=== PATIENT | female | born 2000 | race Two or more races ===

== ENCOUNTER 2024-07-07 16:20 | Emergency (ER) | payer OTHER ==
[~2024-07-07] VITALS: Ht 157.5 cm; Wt 104.7 kg
[2024-07-07] MEDS ORDERED: BENZ200C64 PO (17:10)
[2024-07-07] MEDS ORDERED: LORA-1130 PO (17:10)
[2024-07-07] MEDS ORDERED: MOME50SP11 (17:10)
--- NOTE | 2024-07-07 17:10 | ED.PDOC ---
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 Pertinent ENVELOPE STAMPING MACHINE OPERATOR History Family History Family History: Reviewed,noncontributory to illness, No family hx of Cancer, No family hx of DM, No family hx of Heart carlito, No family hx of HTN, No family hx ofKidney carlito, No family hx of Liver carlito, No family hx of Lung carlito, No family hx of Stroke Constitutional: denies: chills, diaphoresis, fatigue, fever, malaise, sweats, weakness, others EENTM: reports: nasal discharge, nose congestion, voice changes; denies: blurred vision, double vision, ear bleeding, ear discharge, ear drainage, ear pain, ear ringing, eye pain, eye redness, hearing loss, mouth pain, mouth swelling, nose bleeding, nose pain, photophobia, tearing, throat pain, throat swelling, others Respiratory: reports: cough, shortness of breath; denies: hemoptysis, orthopnea, SOB at rest, SOB with excertion, stridor, wheezing, others Cardiovascular: denies: chest pain, dizzy spells, diaphoresis, Dyspnea on exertion, edema, irregular heart beat, left arm pain, lightheadedness, palpitations, PND, syncope, others Gastrointestinal: denies: abdomen distended, abdominal pain, blood streaked bowels, constipated, diarrhea, dysphagia, difficulty swallowing, hematemesis, melena, nausea, poor appetite, poor fluid intake, rectal bleeding, rectal pain, vomiting, others Genitourinary: denies: abnormal vagina bleeding, burning, dyspareunia, dysuria, flank pain, frequency, hematuria, incontinence, pain, , vagina discharge, urgency, others Neurological: denies: dizziness, fainting, headache, left sided numbness, left sided weakness, numbness, paresthesia, pre-existing deficit, right sided numbness, right sided weakness, seizure, speech problems, tingling, tremors, weakness, others Musculoskeletal: denies: back pain, gout, joint pain, joint swelling, muscle pain, muscle stiffness, neck pain, others Integumetry: denies: bruises, change in color, change in hair/nails, dryness, laceration, lesions, lumps, rash, wounds, others Allergic/Immunocompromised: denies: Difficulty Healing, Frequent Infections, Hives, Itching, others Hematologic/Lymphatic: denies: anemia, blood clots, easy bleeding, easy bruising, swollen glands, others Endocrine: denies: excessive hunger, excessive sweating, excessive thirst, excessive urination, flushing, intolerance to cold, intolerance to heat, unexplained weight gain, unexplained weight loss, others All Other Systems: Reviewed and Negative Physical Exam General Appearance: No Apparent Distress, Normal HEENT: Normal ENT Inspection, Pharynx Normal, TMs Normal, Other (hoarseness, no stridors, no wheezes, no drooling. AW patent. positive clear postnasal drainage, sniffling) Neck: Full Range of Motion, Non-Tender, Normal, Normal Inspection Respiratory: Chest Non-Tender, Lungs Clear, No Accessory Muscle Use, No Respiratory Distress, Normal Breath Sounds Cardiovascular: No Edema, No JVD, No Murmur, No Gallop, Normal Peripheral Pulses, Regular Rate/Rhythm Breast Exam: Deferred Gastrointestinal: No Organomegaly, Non Tender, No Pulsatile Mass, Normal Bowel Sounds, Soft Genitalia: Deferred Pelvic: Deferred Rectal: Deferred Extremities: No calf tenderness, Normal capillary refill, Normal inspection, Normal range of motion, Non-tender, No pedal edema Musculoskeletal : Apperance: Normal Neurologic: Alert, court administrator II-XII nml as Tested, No Motor Deficits, Normal Affect, Normal Mood, No Sensory Deficits Cerebellar Function: Normal Reflexes: Normal Skin: Dry, Normal Color, Warm Lymphatic: No Adenopathy Was a procedure done? Was a procedure done?: No Differential Dx Considerations may include: bronchitis, reactive AWD, pneumonia, tonsilitis, pharyngitis, laryngitis, viral uri Time of 1ST Reevaluation: 17:08 Reevaluation 1ST: Unchanged Patient Education/Counseling: Diagnosis, Treatment, Prognosis, Need For Follow Up Family Education/Counseling: No Family Present Departure 1 Departure Time of Disposition: 17:08 Impression: Primary Impression: Laryngitis Disposition: 01 HOME / SELF CARE / HOMELESS Condition: Good Additional Instructions: voice rest, hydrate e-Prescriptions Mometasone Furoate (Nasal) (Nasonex 24Hr) 50 Mcg/Act Spr 50 MCG NA BID, #1 SPRAY Prov: GREGG JAFFE MD 07/07/24 Loratadine & Pseudoephedrine (Claritin-D 24 Hour 10-240 mg) 1 Tab Tab 1 TAB PO DAILY for 10 Days, #10 TAB Prov: GREGG JAFFE MD 07/07/24 Benzonatate (Benzonatate) 200 Mg Cap 1 CAP PO TID, #30 CAP Prov: GREGG JAFFE MD 07/07/24 Discharged With: Self Critical Care Note Critical Care Time?: No Stability Stability form required: No GREGG JAFFE MD Jul 07, 2024 17:10
[2024-07-07 17:36] VITALS: BP 123/77; TEMP 98.1
[2024-07-07 17:37] VITALS: PULSE 73; RESP 15; O2SAT 98
== END 2024-07-07 17:40 | disposition home or self-care (01) ==
LOC: ER 16:26
DX: J04.0 Acute laryngitis (principal)